=== PATIENT | male | born 1940 | race Caucasian/White ===

== ENCOUNTER 2021-07-03 06:09 | Day surgery (SDC) | payer OTHER ==
[~2021-07-03] VITALS: Ht 175.3 cm; Wt 70.3 kg
[~2021-07-03 06:09] MED LIST: DAILY VALUE1 EAC1 PO; FLUTICASONE PRO16 GM NASAL; JANUVIA 50 MG T50 M1 PO; METFORMIN HCL500 M1 PO; PROAIR HFA8.5 GM INH; SIMVASTATIN40 MG PO
[2021-07-03 07:00] VITALS: BP 121/61
--- NOTE | 2021-07-07 06:15 | O ---
[facility] [place] [address] OPERATIVE REPORT Name: LENCHOSAMSON D Room #: DEP [facility]..#: [id number] Admission: 07/03/21 Attend Phys: Gary Helton MD Discharge: 07/03/21 Date of : 38 Report #: [id number] THIS REPORT FOR: cc: Luis Felipe Moser MD, Bruce D. MD White, William L. 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 POSTOPERATIVE DIAGNOSES: Basal cell carcinoma of left lower lid and cheek, left lower lid ectropion. PROCEDURES: 1. Excision of basal cell carcinoma of left lower lid and cheek with frozen section control of margins and myocutaneous flap repair of defect. 2. Correction of left lower lid ectropion by myocutaneous flap. SURGEON: Gary Helton MD TIRE FABRICATOR: None. ANESTHESIA: MAC. COMPLICATIONS: None. INDICATIONS FOR SURGERY: This pleasant 80-year-old gentleman has a biopsy proven basal cell carcinoma in his medial most left lower lid extending down onto his cheek. He also independently has left lower lid ectropion. He presents today for excision of his basal cell carcinoma of the left lower lid and cheek with frozen sections and repair of that defect along with an independent correction of his left lower lid ectropion. Informed consent was obtained to include but not limited to the potential risk for loss of vision, bleeding, infection, failure to improve the problem, the potential need for further surgery or treatment. DESCRIPTION OF PROCEDURE: The patient was taken to the operating room where 2% Xylocaine with epinephrine mixed with equal parts 0.75% Marcaine with Wydase was administered transcutaneously to the left lower lid, the left medial canthus, the left lateral canthus, the left infratemporal fossa and the left cheek. The patient was subsequently prepped and draped in the usual sterile fashion. A fine tip skin marking pen was then utilized to outline the lesion including approximately 1-2 mm of normal appearing tissue around its margins. This roughly paralleled the angular artery. The incisions were then made with a 15C blade down to the orbicularis muscle more superficially and facial musculature [address] [id number] OPERATIVE REPORT Name: SAMSON MUSA Room #: DEP [facility].#: [id number] Admission: 07/03/21 Attend Phys: Gary Helton MD Discharge: 07/03/21 Date of : 38 Report #: [id number] more inferiorly. The deeper dissection was then accomplished with a Néstor scissors. The specimen was oriented on a drawing for the waiting pathologist. She snap froze that tissue and found that the margins were free of cancer. A myocutaneous flap was then developed to correct the defect mobilizing tissue from lateral to medial. Hemostasis was then re-achieved. The flap was then advanced and secured with multiple interrupted 6-0 plain gut sutures. The left lateral canthus was then clamped with a Espitia clamp. A sharp canthotomy and cantholysis was then performed. Hemostasis was achieved with diligent pinpoint monopolar cautery. A tarsal strip was then prepared laterally removing the lash bearing portion of the redundant lid margin and the redundant tarsal plate. Hemostasis was then re-achieved. The flap was then developed inferolaterally to be rotated back into the defect to allow correction of the ectropion. The flap was then advanced and secured with interrupted buried 5-0 Prolene sutures. The tarsal plate was reapproximated to the internal portion of the lateral orbital tubercle with interrupted 5-0 Prolene sutures. The subcutaneous structures and the skin were then closed with 6-0 plain gut sutures. The wound was then cleaned and dressed with erythromycin ophthalmic ointment. The patient subsequently transported to the recovery area having tolerated the procedures well with no anesthetic or operative complications being noted. <ELECTRONICALLY SIGNED> By: Gary Helton MD 07/07/21 0615 [id number] [id number] Gary Helton MD /nt
== END 2021-07-03 08:55 | disposition home or self-care (01) ==
LOC: OR 06:09 → TBA 06:09 → OR 08:55
PROVIDERS: ATTEND Ophthalmology
DX: C44.1192 Basal cell carcinoma of skin of left lower eyelid, including canthus (principal); H02.105 Unspecified ectropion of left lower eyelid; E11.9 Type 2 diabetes mellitus without complications; J43.9 Emphysema, unspecified; E78.5 Hyperlipidemia, unspecified; Z98.890 Other specified postprocedural states; Z79.899 Other long term (current) drug therapy; Z87.891 Personal history of nicotine dependence
CPT/HCPCS: 50010; 50101; 50386; 50398; 51636; 56527; 56531; 62110; 62850; 70005